=== PATIENT | male | born 1965 | race Caucasian/White ===

== ENCOUNTER 2017-03-18 11:31 | Day surgery (SDC) | payer OTHER ==
[2017-03-18 12:21] VITALS: BMI 34.0
[2017-03-18] MEDS ORDERED: LIDOCAINE 1%/EPI 1:100000 (20 ML MULTI DOSE VIAL) ONE ×2 (12:50→14:43)
[2017-03-18] MEDS ORDERED: methylPREDNISolone ACET (DEPO) 40 MG/1 ML VIAL ONE ×2 (12:50→14:42)
[2017-03-18] MEDS ORDERED: THROMBIN (BOVINE) 5,000 UNIT VIAL TP ONE ×3 (12:50→15:36)
[2017-03-18] MEDS ORDERED: BUPIVACAINE HCL/PF 2.5 MG/ML - 30 ML VIAL IJ ONE (14:43)
[2017-03-18] MEDS ORDERED: MIDAZOLAM HCL 2 MG/2 ML SINGLE DOSE VIAL ONE ×2 (14:44→15:09)
[2017-03-18] MEDS ORDERED: DEXAMETHASONE SOD PHOSPHATE 4 MG/1 ML VIAL ONE (15:07)
[2017-03-18] MEDS ORDERED: ceFAZolin SODIUM 1 GM VIAL ONE (15:07)
[2017-03-18] MEDS ORDERED: ONDANSETRON 4 MG/2 ML VIAL ONE (15:07)
[2017-03-18] MEDS ORDERED: LIDOCAINE 1%/EPI 1:100000 (50 ML MULTI DOSE VIAL) INF ONE (15:35)
[2017-03-18] MEDS ORDERED: GELATIN SPONGE,ABSORBABLE 1 GM PACKET TP ONE (15:35)
[2017-03-18] MEDS ORDERED: methylPREDNISolone ACET (DEPO) 40 MG/1 ML VIAL IM ONE (16:07)
[2017-03-18] MEDS ORDERED: BUPIVACAINE HCL/PF 0.25% (2.5MG/ML) 10 ML VIAL IJ ONE (16:07)
[2017-03-18] MEDS ORDERED: oxyCODONE HCL 5 MG TABLET PO PRN ×2 (16:14)
[2017-03-18] MEDS ORDERED: ONDANSETRON 4 MG/2 ML VIAL IVPUSH PRN (16:14)
--- NOTE | 2017-03-18 16:38 | OP ---
Operative Note - Note: Operative Date: 03/18/17 Operation: L5-S1 laminectomy, micro discectomy Surgeon: Jamari Early Marine Cargo Inspector: Teri Lovelace Anesthesiologist/CAMPAIGN DIRECTOR: Nataliya Chaney Anesthesia: Spinal Specimens Removed: L5-S1 disc Estimated Blood Loss (mls): 20 Fluid Volume Replaced (mls): 1,100 Operative Report Dictated: Yes
--- NOTE | 2017-03-18 16:39 | SURG ---
Surgery Attending Physician Note Attending Physician: Teri Lovelace PA-C Date of Service: 03/18/17 Diagnosis: L5-S1 spinal stenosis Procedure: Lamnectomy of L5-S1 , microdisectomy I was present for the entirety of the operative procedure. For further detail, please refer to operative report. Visit type - Case Type Case Type: Scheduled Admission - Emergency Emergency Visit: No - New patient This patient is new to me today: Yes Date on this admission: 03/18/17
--- NOTE | 2017-03-18 16:40 | HP ---
History & Physical Update - History History: No Change - Physical Physical: No Change - Assessment Assessment: No Change - Plan Plan: No Change
[2017-03-18 18:26] VITALS: PULSE 65
[2017-03-18 18:27] VITALS: BP 133/75; TEMP 98
--- NOTE | 2017-03-19 07:21 | OP ---
DATE OF OPERATION: 03/18/2017 PREOPERATIVE DIAGNOSIS: Spinal stenosis L5-S1. POSTOPERATIVE DIAGNOSIS: Spinal stenosis L5-S1. PROCEDURE PERFORMED: Hemilaminectomy L5-S1. SURGEON: Jamari Early MD CIGARETTE EXAMINER: LNACE Potter ESTIMATED BLOOD LOSS: 50 mL. INTRAVENOUS FLUIDS: Per Anesthesia. ANESTHESIA: Spinal. COMPLICATIONS: There were none. DISPOSITION: Patient brought to PACU in stable condition. INDICATION FOR SURGERY: The patient is a 52-year-old gentleman who has been suffering from his back down his leg. X-rays and MRI were completed which showed that he had spinal stenosis at L5-S1. He had gone through an exhaustive course of treatment for this which included medications, physical therapy, as well as injections. Unfortunately, his pain continued to persist despite all this. At this point risks, benefits, and alternatives were discussed, then the patient consented to surgery. DESCRIPTION OF PROCEDURE: The patient was brought to the operating room by anesthesia staff. After appropriate patient identification was performed, spinal anesthesia was given. Patient was placed prone onto the [place] frame with all areas of bony prominences well padded . t This time the patient was able to position himself properly. Two needles were placed into his back to gurinder off the L5-S1 segment. X-ray was taken to confirm this was correct. Needle was removed and 10 mL of lidocaine with epinephrine was injected into his back. At this time his back was prepped and draped in sterile manner. At this point a timeout was completed. An incision was made from the top of L5 down to the bottom of S1. Dissection was carried down to the fascia. Fascia was split open on the left-hand side, and appropriate retractors were then placed. Then a spinal needle was placed onto the L5 lamina. An x-ray was taken to confirm this was correct. Needle was removed and the microscope was brought in. At this point a portion of the L5-S1 lamina was removed. The flavum was identified and was removed. The nerve root was mobilized medially. The disk herniation was noted. It was removed. A complete decompression was performed such that by the end the S1 nerve root appeared to be well decompressed. All bleeding was well controlled at this time. Steroid was placed on the nerve root. The fascia was closed with No. 1 Vicryl suture. Subcutaneous tissue was closed with 2-0 Vicryl suture. Skin was closed with 3-0 Monocryl suture. Dermabond was applied. Steri-Strips were applied. A sterile dressing was applied. Patient was placed supine on the OR bed and brought to the PACU in stable condition. Nicholas GAY/[id number] MTDD
== END 2017-03-18 18:37 | disposition home or self-care (01) ==
LOC: FASU 11:31
PROVIDERS: ATTEND Orthopaedic Surgery Orthopaedic Surgery of the Spine
PROC: 01NB0ZZ Release Lumbar Nerve, Open Approach (ICD-10-PCS; principal; 2017-03-18 15:23)
DX: M48.07 Spinal stenosis, lumbosacral region (principal)
CPT/HCPCS: 72100-TC; 76000-TC